=== PATIENT | male | born 1980 | race Caucasian/White ===

== ENCOUNTER 2020-12-07 20:13 | Emergency (ER) | payer MEDICAID, SELFPAY ==
[2020-12-07 20:32] VITALS: BP 117/65; PULSE 78; RESP 18; TEMP 37.2; O2SAT 98; BMI 24.0
[2020-12-07 21:39] LABS: MANUAL DIFF FLAG NO
[2020-12-07 21:41] LABS: Basophils Percent Auto 0.5 % (0-2); Eosinophils Absolute Auto 0.4 X10*3/uL (0.0-0.4); Eosinophils Percent Auto 5.1 % (0-4); Hematocrit 41.9 % (42-52); Hemoglobin 14.5 g/dl (14.0-18.0); Imm Gran Abs Auto 0.02 X10*3/uL (0.00-0.03); Imm Gran Pct Auto 0.3 % (0.0-0.4); Lymphocytes Absolute Auto 2.2 X10*3/uL (1.2-4.9); Lymphocytes Percent Auto 28.9 % (20-40); Mean Corpuscular HGB Conc 34.6 g/dl (31.0-36.0); Mean Corpuscular Hemoglobin 31.6 pg (27.0-33.0); Mean Corpuscular Volume 91.3 fL (80-98); Mean Platelet Volume 9.2 fL (9.4-12.4); Monocytes Absolute Auto 0.7 X10*3/uL (0.1-1.2); Monocytes Percent Auto 9.9 % (2-11); Neutrophils Absolute Auto 4.1 X10*3/uL (2.0-8.3); Neutrophils Percent Auto 55.3 % (45-73); Platelet Count 238 X10*3/uL (160-400); Red Blood Count 4.59 X10*6/uL (4.60-5.80); Red Cell Distribution Width 11.5 % (11.0-16.0); White Blood Count 7.4 X10*3/uL (4.8-10.8)
[2020-12-07 21:42] VITALS: BP 123/71; PULSE 80; RESP 18; TEMP 36.8; O2SAT 97
[2020-12-07 21:58] LABS: Lactic Acid 0.7 mmol/L (0.5-2.0)
[2020-12-07 22:42] LABS: Alanine Aminotransferase 21 U/L (0-40); Albumin Level 4.4 g/dL (3.5-5.0); Alkaline Phosphatase 58 U/L (39-117); Anion Gap 13 (12-20); Aspartate Amino Transferase 29 U/L (5-37); Bilirubin Total 0.9 mg/dL (0.0-1.0); Blood Urea Nitrogen 14 mg/dL (9-16); Calcium 9.5 mg/dL (8.4-10.2); Carbon Dioxide 30 mmol/L (22-29); Chloride 101 mmol/L (96-108); Creatinine Clr Calc Pharmacy 134.7; Estimated Glomerular Filt Rate > 60; Glucose Random 84 mg/dL (60-115); Potassium 3.8 mmol/L (3.3-5.1); Sodium 140 mmol/L (135-145)
--- NOTE | 2020-12-07 23:23 | ED.GENADULT ---
HPI - General Adult General Chief complaint: General Medical Stated complaint: elbow infection? Time Seen by Provider: 12/07/20 22:52 Source: patient Mode of arrival: ambulatory Limitations: no limitations History of Present Illness HPI narrative: Patient came here for right elbow pain after he scratched 2 weeks ago now he noticed increased redness redness and swelling and painful able to move his elbow but painful and extreme movements no fever or chills Related Data Previous Rx's Medication Instructions Recorded cephalexin 500 mg PO QID 10 Days #40 cap 12/07/20 doxycycline hyclate 100 mg PO BID #20 cap 12/07/20 ibuprofen 600 mg PO Q6H PRN #20 tab 12/07/20 Allergies Allergy/AdvReac Type Severity Reaction Status Date / Time No Known Allergies Allergy Unverified 04/28/20 17:23 Review of Systems Review of Systems: Constitutional : No Weight loss, No Fever, No Chills ENT/Mouth : No sore throat, No Rhinorrhea Eyes: No Eye Pain, No Swelling Cardiovascular : No Chest Pain, no palpitations Respiratory : No Cough, No Sputum, no shortness of breath Gastrointestinal : no Nausea, No Vomiting, No Diarrhea, No abdominal Pain, no black stools Genitourinary : No Dysuria, No Urinary Frequency Musculoskeletal : + joint pain, No Myalgias, No Joint Swelling Skin : No Skin Lesions, + rash Neuro : No Weakness, No Numbness, No Dizziness, No Headache Psych : No Anxiety/Panic, No Depression Heme/Lymph: No Bruising, No Lymphadenopathy Endocrine : No Polyuria, No Polydipsia All other systems reviewed and are negative [facility] Past Medical History Medical History Eosinophilic esophagitis Sleep apnea Surgical History H/O hand surgery Hx of right knee surgery S/P LASIK surgery Social History Social History Advance Directives: No Advance Directives Information Provided: No Physical Exam Vital Signs: Vital Signs: Last Vital Signs Temp 98.3 F 12/07/20 21:42 Pulse 80 12/07/20 21:42 Resp 18 12/07/20 21:42 BP 123/71 12/07/20 21:42 Pulse Ox 97 12/07/20 21:42 Body Mass Index 24.0 Const: General: comfortable and no acute distress HENMT: Head: Yes normocephalic Eyes: General: appearance normal, both eyes and all related structures Neck: Neck: Yes full ROM and Yes no lymphadenopathy Resp: Effort & Inspection: normal respiratory effort and able to speak in complete sentences Cardio: Rate: regular rate Rhythm: regular rhythm Heart sounds: S1 normal heart sound present and S2 normal heart sound present GI: Inspection: Yes normal to inspection Palpation (GI): Soft to palpation Extrem: Elbow/forearm/wrist images: 1. Swollen erythematous tender olecranon bursa with surrounding cellulitis Medical Decision Making MDM Narrative Medical decision making narrative: Patient with right olecranon bursitis with surrounding cellulitis needle aspiration revealed clear fluid no pus from the bursa. Labs are stable with normal WBC count and lactic acid, Will discharge patient home on doxycycline and Keflex for cellulitis and ibuprofen for bursitis Lab Data Lab results reviewed: Yes I reviewed the patient's lab results. Result diagrams: 12/07/20 21:31 12/07/20 21:31 Labs: Lab Results 12/07/20 12/07/20 12/07/20 Range/Units 21:31 21:31 21:31 WBC 7.4 (4.8-10.8) X10*3/uL RBC 4.59 L (4.60-5.80) X10*6/uL Hgb 14.5 (14.0-18.0) g/dl Hct 41.9 L (42-52) % MCV 91.3 (80-98) fL MCH 31.6 (27.0-33.0) pg MCHC 34.6 (31.0-36.0) g/dl RDW 11.5 (11.0-16.0) % Plt Count 238 (160-400) X10*3/uL MPV 9.2 L (9.4-12.4) fL Immature Gran % (Auto) 0.3 (0.0-0.4) % Neut % (Auto) 55.3 (45-73) % Lymph % (Auto) 28.9 (20-40) % [place] % (Auto) 9.9 (2-11) % Eos % (Auto) 5.1 H (0-4) % Baso % (Auto) 0.5 (0-2) % Lymph # (Auto) 2.2 (1.2-4.9) X10*3/uL [place] # (Auto) 0.7 (0.1-1.2) X10*3/uL Eos # (Auto) 0.4 (0.0-0.4) X10*3/uL Baso # (Auto) 0.0 (0.0-0.2) X10*3/uL Abs Immat Gran (auto) 0.02 (0.00-0.03) X10*3/uL Absolute Neuts (auto) 4.1 (2.0-8.3) X10*3/uL Absolute Nucleated RBC 0.000 (0.0-0.012) X10*3/uL Nucleated RBC % (auto) 0.0 (0.0-0.2) /100WBC Sodium 140 (135-145) mmol/L Potassium 3.8 (3.3-5.1) mmol/L Chloride 101 (96-108) mmol/L Carbon Dioxide 30 H (22-29) mmol/L Anion Gap 13 (12-20) BUN 14 (9-16) mg/dL Creatinine 0.80 (0.5-1.4) mg/dL Estim Creat Clear Calc 134.7 Estimated GFR > 60 Random Glucose 84 (60-115) mg/dL Lactic Acid 0.7 (0.5-2.0) mmol/L Calcium 9.5 (8.4-10.2) mg/dL Total Bilirubin 0.9 (0.0-1.0) mg/dL AST 29 (5-37) U/L ALT 21 (0-40) U/L Alkaline Phosphatase 58 (39-117) U/L Total Protein 7.0 (6.5-8.0) g/dL Albumin 4.4 (3.5-5.0) g/dL Discharge Plan Discharge Clinical Impression: Cellulitis of right elbow, Bursitis of elbow Patient Disposition: Home, Self-Care Instructions: Cellulitis (ED), Elbow Bursitis (ED) Additional Instructions: Rest to right elbow Antibiotic as advised Report to the ER/PCV of increased swelling /pain/ fever Ibuprofen for pain Prescriptions: New doxycycline hyclate 100 mg capsule 100 mg PO BID Qty: 20 RF: 0 cephalexin 500 mg capsule 500 mg PO QID 10 Days Qty: 40 RF: 0 ibuprofen 600 mg tablet 600 mg PO Q6H PRN (Reason: pain) Qty: 20 RF: 0 Interventions: ED Discharge Assessment Last Done: 12/07/20 23:46 Discharge Date/Time: 12/07/20 23:47
[2020-12-07] MEDS: cephALEXin 500 MG CAPSULE PO (23:46)
== END 2020-12-07 23:47 | disposition home or self-care (01) ==
PROVIDERS: Emergency Provider Internal Medicine; PCP Internal Medicine
DX: L03.113 Cellulitis of right upper limb (principal); M70.31 Other bursitis of elbow, right elbow; Z79.899 Other long term (current) drug therapy
CPT/HCPCS: 36415; 80053; 83605; 85025; 87040; 99283

== ENCOUNTER → 2020-12-21 13:20 | Outpatient (BNVA) | payer SELFPAY | PROVIDERS: PCP Internal Medicine; Visit Provider Physician Assistant Medical | DX: Z02.79 Encounter for issue of other medical certificate (principal) ==

== ENCOUNTER 2022-01-17 07:53 | Outpatient (REF) | payer MEDICAID, SELFPAY | END 2022-01-17 07:54 | disposition home or self-care (01) | LOC: HO.LAB 07:53 | PROVIDERS: PCP Internal Medicine; Visit Provider Internal Medicine | DX: Z13.89 Encounter for screening for other disorder (principal) ==

== ENCOUNTER → 2022-11-19 08:07 | Outpatient (BNVA) | payer SELFPAY | PROVIDERS: PCP Internal Medicine; Visit Provider Physician Assistant Medical | DX: Z02.79 Encounter for issue of other medical certificate (principal) ==

== ENCOUNTER 2024-10-27 15:02 | Outpatient (AMB) | payer OTHER, SELFPAY ==
--- NOTE | 2024-10-27 15:03 | A.OFFPC_ITS ---
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: No Accompanied by: Self / Same As Patient Allergies No Known Allergies Allergy (Unverified 11/03/24 06:12) Medication List - Last Reconciled 11/03/24 by Maximilian Glez MD No Known Home Meds Tobacco use date assessed: 10/27/24 Dental Screening Dental Screen Date: 10/27/24 Did you have a dental visit in the last 12 months?: Yes Did you have a dental problem in the last 6 months where you did not have access to dental care?: No [facility] Medical History (Updated 11/03/24 @ 06:14 by Maximilian Glez MD) Generalized anxiety disorder Obstructive sleep apnea Sleep apnea Eosinophilic esophagitis Surgical History S/P LASIK surgery Hx of right knee surgery H/O hand surgery Family History Father Heart problem Mother Diabetes Obese Cancer Depression Anxiety Social History Housing: House Alcohol intake: current Alcohol intake frequency: a few times a week Patient Tobacco Use Status: Never used Tobacco service: No Current occupational status: employed Cognitive needs: No Hearing needs: No Vision needs: No Questionnaire PHQ-9 Over the last 2 weeks, how often have you been bothered by any of the following problems? 1. Little interest or pleasure in doing things: not at all 2. Feeling down, depressed, or hopeless: not at all 3. Trouble falling or staying asleep, or sleeping too much: not at all 4. Feeling tired or having little energy: not at all 5. Poor appetite or overeating: not at all 6. Feeling bad about yourself - or that you are a failure or have let yourself or your family down: not at all 7. Trouble concentrating on things, such as reading the newspaper or watching television: not at all 8. Moving or speaking so slowly that other people could have noticed. Or the opposite - being so fidgety or restless that you have been moving around a lot more than usual: not at all 9. Thoughts that you would be better off or of hurting yourself in some way: not at all Total score: 0 Source: Developed by Drs. Alfonso Tan, Sunitha Sanford, Mike Vergara and colleagues, with an educational shira from [employer]. Thrive Questionnaire Date Thrive assessed: 10/27/24 I am a: Patient What is your living situation today?: I have a steady place to live Within the past 12 months, did the food you bought not last and you didn't have the money to get more?: Never true Within the past 12 months, did you worry whether your food would run out before you got money to buy more?: Never true Do you have trouble paying for medicines?: No Do you have trouble getting transportation to medical appointments?: No Do you have trouble paying your heating and electricity bill?: No Do you have trouble taking care of your child, family member or friend?: No Do you have trouble with day-to-day activities such as bathing, preparing meals, shopping, managing finances, etc.?: No Are you currently unemployed and looking for a job?: No Are you interested in more education?: No Please select the resources that you would like help with: None THRIVE Score: 0 AUDIT C Alcohol Use Questionnaire (AUDIT-C) 1. How often do you have a drink containing alcohol?: 2-3 times a week 2. How many drinks containing alcohol do you have on a typical day when you are drinking?: 1 or 2 3. How often do you have six or more drinks on one occasion?: Never Total Score: 3 SUMMER-7 AMB Questionnaire SUMMER-7 Date SUMMER - 7 assessed: 10/27/24 Feeling nervous, anxious, or on edge: 2 = More than half the days Not being able to stop or control worryin = Several days Worrying too much about different things: 2 = More than half the days Trouble relaxin = Nearly every day Being so restless that it is hard to sit still: 0 = Not at all Becoming easily annoyed or irritable: 3 = Nearly every day Feeling afraid as if something awful might happen: 0 = Not at all Total SUMMER-7 score (0-4 normal; 5-9 mild; 10-14 moderate; 15-21 severe): 11 Source: Developed by Drs. Alfonso Tan, Sunitha Sanford, Mike Vergara and colleagues, with an educational shira from [employer]. Physical exam (Primary Care) Vital Signs: Last Vital Signs Temp 97.6 F 10/27/24 15:05 Pulse 86 10/27/24 15:05 Resp 14 10/27/24 15:05 BP 122/78 10/27/24 15:05 Pulse Ox 98 10/27/24 15:05 Oxygen Delivery Method Room Air 10/27/24 15:05 BMI result Body Mass Index 25.2 Tobacco/Smoking Status: Tobacco use Status Tobacco use date assessed 10/27/24 10/27/24 15:14 Patient Tobacco Use Status Never used Tobacco 10/27/24 15:14 PHQ-9: PHQ-9 Score PHQ-9: Total score 0 10/27/24 15:14 Thrive Assessment: Date of Thrive Assessment Date Thrive assessed 10/27/24 10/27/24 15:14 Coding Level of Care Code New Pt Level 3 (78184) New Pt Prev Care 40-64y(81015) Diagnoses Obstructive sleep apnea G47.33 Generalized anxiety disorder F41.1 Assessment & Plan Assessment & Plan (1) Obstructive sleep apnea: Code(s): G47.33 - Obstructive sleep apnea (adult) (pediatric) Category: Medical Plan: Sleep medicine referral is made (2) Generalized anxiety disorder: Code(s): F41.1 - Generalized anxiety disorder Category: Medical Plan: Acknowledges his condition but declines medications or therapy. Plan History of Present Illness The patient is a 44-year-old male presenting for a physical examination and evaluation of several chronic health issues. He has a diagnosis of sleep apnea from 2013, managed with a CPAP machine, yet reports ongoing daytime somnolence and challenges with sustained alertness during driving. The patient has not had a recent repeat sleep study. There is concern regarding erectile dysfunction starting in February, manifesting as intermittent troubles with maintaining an erection, with the patient suspecting anxiety and physiological factors. Historically, he maintained a high libido and stable sexual life, experiencing increased anxiety and stress correlated with these issues recently. The patient acknowledges a history of anxiety and family stress during childhood, with aggravated stress feelings becoming more prevalent in the past six months. He expresses concern over financial security despite a stable income and good management of current expenses. Further, there are two notable lesions on the scalp, persistent and prone to re- irritation. These have been present for many years and are of cosmetic and possibly health concern, given past sun exposure and moles. 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 - Family status: for 18 years, father of two boys aged 9 and almost 7. - Substance use: Occasional alcohol; denies tobacco or illicit drug use. - Exercise: Engages in running, participates in half-marathons with his . - Functional status: Describes himself as highly active and energetic; experiences fatigue linked to sleep apnea. - Stress: Reports high stress levels related to financial concerns. - Housing: Stable; no current financial distress. - Level of activity: High; regularly engages in physical activities despite reported fatigue. Review of Systems - Constitutional: Reports daytime sleepiness, particularly when driving. - Neurological: Denies insomnia; describes the ability to fall asleep easily but feels unrested upon waking. - Psychiatric: Reports irritability and anxiety; stress about financial matters. - Dermatological: Reports non-healing lesions on scalp. - Genitourinary: Reports episodes of erectile dysfunction, historically high libido. Physical Exam General: Cooperative and healthy appearing Nutritional Appearance: Well nourished Orientation/consciousness: Patient oriented x3 Limitations: No limitations Head: Normal to inspection General: Appearance normal, both eyes and all related structures Neck: Normal visual inspection Chest: Normal palpation of entire chest wall Respiratory: Normal respiratory effort Neurology: Patient oriented x3 Results Plan A referral for a repeat sleep study will be arranged to reevaluate the severity of obstructive sleep apnea and optimize CPAP therapy. Blood work will assess potential hepatic steatosis and familial hypertriglyceridemia concerns. Dermatology evaluation will be pursued for chronic scalp lesions. Consideration of Wellbutrin for anxiety management was discussed, emphasizing informed consent on its use, potential side effects, and a necessary three-month commitment to the medication. Patient was informed and verbally consented to the use of an ambient scribe for clinic note documentation during this visit. Discussion Notes I discussed with the patient the importance of reassessing sleep apnea through a new sleep study, as current symptoms suggest possible suboptimal CPAP settings or worsening of the condition. We reviewed his concerns about erectile dysfunction, emphasizing the potential role of anxiety and stress, and educated him on managing sexual health anxiety. The conversation included a discussion about the pharmacotherapy option of Wellbutrin for anxiety, detailing the potential effects on mood, sleep, and libido and the importance of maintaining a stable regimen over three months. Lastly, a plan for dermatologic evaluation was decided upon due to the persistent lesions on the scalp, as further assessment is deemed necessary. Patient Instructions - Follow up with the sleep specialist for a repeat study on your sleep apnea. - Obtain fasting blood work as discussed, focusing on cholesterol and liver function. - See a geothermal powerplant mechanic for evaluation of scalp lesions. - Consider the information discussed about Wellbutrin; if choosing to initiate, keep a record of your symptoms and response to the medication over the three- month trial period. - Maintain a log of good and bad days as a reference for future appointments. - Continue using CPAP consistently and report any changes in symptoms or machine effectiveness. - Seek guidance from your support system and consider talking to a therapist about stress management. Orders: Orders Basic Metabolic Panel 10/28/24 G47.33 - Obstructive sleep apnea (adult) (pediatric) Liver Panel 10/28/24 G47.33 - Obstructive sleep apnea (adult) (pediatric) Thyroid Stimulating Hormone 10/28/24 G47.33 - Obstructive sleep apnea (adult) (pediatric) Complete Blood Count no Diff 10/28/24 G47.33 - Obstructive sleep apnea (adult) (pediatric) Lipid Panel 10/28/24 G47.33 - Obstructive sleep apnea (adult) (pediatric) UA and rflx microscopic 10/28/24 G47.33 - Obstructive sleep apnea (adult) (pediatric) Referrals Sleep Medicine Referral G47.33 - Obstructive sleep apnea (adult) (pediatric) Medications: Discontinued cephalexin Discontinued Reason: Patient Completed Course 500 mg PO QID 10 days 40 caps 0RF ibuprofen Discontinued Reason: Patient no longer taking 600 mg PO Q6H PRN 20 tabs 0RF pain doxycycline hyclate Discontinued Reason: Patient Completed Course 100 mg PO BID 20 caps 0RF
[2024-10-27 15:05] VITALS: BP 122/78; PULSE 86; RESP 14; TEMP 36.4; O2SAT 98; BMI 25.2
== END 2024-10-27 15:52 | disposition home or self-care (01) ==
LOC: HO.HMCSH 15:02
PROVIDERS: PCP Internal Medicine; Visit Provider Internal Medicine
DX: G47.33 Obstructive sleep apnea (adult) (pediatric) (principal); F41.1 Generalized anxiety disorder; Z00.00 Encounter for general adult medical examination without abnormal findings

== ENCOUNTER → 2024-10-27 15:02 | Outpatient (BNVA) | payer OTHER, SELFPAY | PROVIDERS: PCP Internal Medicine; Visit Provider Internal Medicine | DX: Z00.00 Encounter for general adult medical examination without abnormal findings (principal); G47.33 Obstructive sleep apnea (adult) (pediatric); F41.1 Generalized anxiety disorder | CPT/HCPCS: 99202; 99386 ==

== ENCOUNTER 2024-10-28 08:07 | Outpatient (REF) | payer OTHER, SELFPAY ==
[2024-10-28 09:00] LABS: Hematocrit 45.7 % (42.0-52.0); Hemoglobin 16.6 g/dl (14.0-18.0); Mean Corpuscular HGB Conc 36.3 g/dl (31.0-36.0); Mean Corpuscular Hemoglobin 31.8 pg (27.0-33.0); Mean Corpuscular Volume 87.5 fL (80.0-98.0); Mean Platelet Volume 9.2 fL (9.4-12.4); Platelet Count 239 X10*3/uL (160-400); Red Blood Count 5.22 X10*6/uL (4.60-5.80); Red Cell Distribution Width 11.7 % (11.0-16.0); White Blood Count 5.1 X10*3/uL (4.8-10.8)
[2024-10-28 09:05] LABS: Appearance Urine Clear; Color Urine Yellow; Glucose Urine UA Negative (Negative); Leukocyte Esterase Urine Negative (Negative); Nitrite Urine Negative (Negative); PH 5.5 (5.0-9.0); Specific Gravity - Urine 1.025 (1.005-1.025); Urine Blood Negative (Negative); Urine Ketones Negative (Negative); Urine Protein Negative (Neg-Trace)
[2024-10-28 09:33] LABS: Alanine Aminotransferase 37 U/L (0-40); Albumin Level 4.2 g/dL (3.5-5.0); Alkaline Phosphatase 51 U/L (39-117); Anion Gap 11 (12-20); Aspartate Amino Transferase 35 U/L (5-37); Bilirubin Direct 0.3 mg/dL (0.0-0.5); Bilirubin Total 1.3 mg/dL (0.0-1.0); Blood Urea Nitrogen 17 mg/dL (9-16); Carbon Dioxide 27 mmol/L (22-29); Chloride 105 mmol/L (96-108); Cholesterol 282 mg/dL (<200); Estimated Glomerular Filt Rate > 60; Glucose Random 88 mg/dL (60-115); HDL Cholesterol 67 mg/dL (>40); LDL Cholesterol Calculated 170 mg/dL (<100); Sodium 139 mmol/L (135-145); Total Protein 7.2 g/dL (6.5-8.0); Triglycerides 227 mg/dL (<150)
[2024-10-28 09:55] LABS: Thyroid Stimulating Hormone 0.67 uIU/mL (0.32-4.0)
== END 2024-10-28 08:08 | disposition home or self-care (01) ==
LOC: HO.LAB 08:07
PROVIDERS: PCP Internal Medicine; Visit Provider Internal Medicine
DX: G47.33 Obstructive sleep apnea (adult) (pediatric) (principal)
CPT/HCPCS: 36415; 80048; 80061; 80076; 81003; 84443; 85027

== ENCOUNTER → 2024-11-12 15:09 | Outpatient (BNVA) | payer SELFPAY | PROVIDERS: PCP Internal Medicine; Visit Provider Physician Assistant | DX: Z02.79 Encounter for issue of other medical certificate (principal) ==

== ENCOUNTER 2024-12-22 09:26 | Outpatient (AMB) | payer OTHER, SELFPAY ==
[2024-12-22 09:34] VITALS: BP 119/71; PULSE 78; TEMP 36.6; O2SAT 98; BMI 24.0
--- NOTE | 2024-12-22 09:34 | A.OFFPC_ITS ---
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 Required: No Accompanied by: Self / Same As Patient Allergies No Known Allergies Allergy (Unverified 12/22/24 09:34) Tobacco use date assessed: 12/22/24 Dental Screening Dental Screen Date: 10/27/24 [facility] Medical History (Updated 12/22/24 @ 10:13 by Maximilian Glez MD) Hyperlipidemia Scalp lesion Generalized anxiety disorder Obstructive sleep apnea Sleep apnea Eosinophilic esophagitis Surgical History S/P LASIK surgery Hx of right knee surgery H/O hand surgery Family History Father Heart problem Mother Diabetes Obese Cancer Depression Anxiety Social History Housing: House Alcohol intake: current Alcohol intake frequency: a few times a week Patient Tobacco Use Status: Never used Tobacco service: No Current occupational status: employed Cognitive needs: No Hearing needs: No Vision needs: No Questionnaire PHQ-9 Over the last 2 weeks, how often have you been bothered by any of the following problems? 1. Little interest or pleasure in doing things: not at all 2. Feeling down, depressed, or hopeless: not at all 3. Trouble falling or staying asleep, or sleeping too much: not at all 4. Feeling tired or having little energy: not at all 5. Poor appetite or overeating: not at all 6. Feeling bad about yourself - or that you are a failure or have let yourself or your family down: not at all 7. Trouble concentrating on things, such as reading the newspaper or watching television: not at all 8. Moving or speaking so slowly that other people could have noticed. Or the opposite - being so fidgety or restless that you have been moving around a lot more than usual: not at all 9. Thoughts that you would be better off or of hurting yourself in some way: not at all Total score: 0 Source: Developed by Drs. Alfonso Tan, Mike Ferrer and colleagues, with an educational shira from [employer]. Thrive Questionnaire Date Thrive assessed: 10/27/24 I am a: Patient What is your living situation today?: I have a steady place to live Within the past 12 months, did the food you bought not last and you didn't have the money to get more?: Never true Within the past 12 months, did you worry whether your food would run out before you got money to buy more?: Never true Do you have trouble paying for medicines?: No Do you have trouble getting transportation to medical appointments?: No Do you have trouble paying your heating and electricity bill?: No Do you have trouble taking care of your child, family member or friend?: No Do you have trouble with day-to-day activities such as bathing, preparing meals, shopping, managing finances, etc.?: No Are you currently unemployed and looking for a job?: No Are you interested in more education?: No Please select the resources that you would like help with: None THRIVE Score: 0 AUDIT C Alcohol Use Questionnaire (AUDIT-C) 1. How often do you have a drink containing alcohol?: 2-3 times a week 2. How many drinks containing alcohol do you have on a typical day when you are drinking?: 1 or 2 3. How often do you have six or more drinks on one occasion?: Never Total Score: 3 SUMMER-7 AMB Questionnaire SUMMER-7 Date SUMMER - 7 assessed: 10/27/24 Feeling nervous, anxious, or on edge: 2 = More than half the days Not being able to stop or control worryin = Several days Worrying too much about different things: 2 = More than half the days Trouble relaxin = Nearly every day Being so restless that it is hard to sit still: 0 = Not at all Becoming easily annoyed or irritable: 3 = Nearly every day Feeling afraid as if something awful might happen: 0 = Not at all Total SUMMER-7 score (0-4 normal; 5-9 mild; 10-14 moderate; 15-21 severe): 11 Source: Developed by Sunitha Christian Kurt Kroenke and colleagues, with an educational shira from [employer]. Physical exam (Primary Care) Vital Signs: Last Vital Signs Temp 97.8 F 12/22/24 09:34 Pulse 78 12/22/24 09:34 BP 119/71 12/22/24 09:34 Pulse Ox 98 12/22/24 09:34 Oxygen Delivery Method Room Air 12/22/24 09:34 BMI result Body Mass Index 24.0 Tobacco/Smoking Status: Tobacco use Status Tobacco use date assessed 12/22/24 12/22/24 09:43 Patient Tobacco Use Status Never used Tobacco 12/22/24 09:43 PHQ-9: PHQ-9 Score PHQ-9: Total score 0 12/22/24 10:15 Thrive Assessment: Date of Thrive Assessment Date Thrive assessed 10/27/24 12/22/24 09:43 Coding Level of Care Code Est Pt Level 4 (82426) Complex EM visit Add On G2211 Diagnoses Generalized anxiety disorder F41.1 Obstructive sleep apnea G47.33 Hyperlipidemia E78.5 Assessment & Plan Assessment & Plan (1) Generalized anxiety disorder: Code(s): F41.1 - Generalized anxiety disorder Category: Medical Plan: Encouraged patient to start Wellbutrin. (2) Obstructive sleep apnea: Code(s): G47.33 - Obstructive sleep apnea (adult) (pediatric) Category: Medical Plan: Patient has an upcoming appointment in January for a sleep study. (3) Hyperlipidemia: Code(s): E78.5 - Hyperlipidemia, unspecified Category: Medical Plan: Blood work reviewed with patient. Elevated LDL discussed. Patient not willing to start medications at the moment. Wishes to recheck blood work in 6 months. Plan History of Present Illness The patient is a 44-year-old male presenting with concerns related to the anticipated pharmaceutical initiation of Wellbutrin (bupropion) for managing his major depressive disorder, following challenges related to its procurement and apprehensions about side effects. He has proactively chosen a new pharmacy to facilitate receipt of the medication, seeking clarification on its early effects. In addition, the patient expresses a pre-existing diagnosis of elevated cholesterol, with baseline laboratory results indicating high cholesterol and triglyceride levels, opting to manage these through lifestyle changes before pursuing medication. He confirms adjustments to his alcohol consumption and diet, aiming to evaluate their impact on cholesterol levels in half a year's time. Social History - Family Status: with children (referred to having a and boys). - Alcohol Intake: Limited to weekends only (Saturday, Saturday, Saturday; occasionally none on Saturday). - Diet: Implemented dietary modifications including less red meat and reduced intake of snacks, specifically chips. - Travel: Upcoming six-week road trip planned with family. - Exercise: Engages in running. Review of Systems - Psychiatric: Reports apprehension regarding Wellbutrin (bupropion) initiation. - Integumentary: Reports a cyst and a long-standing lipoma, which are not currently symptomatic. - Cardiovascular: Denies immediate concerns related to high cholesterol other than the known elevated levels. Physical Exam General: Cooperative and healthy appearing Nutritional Appearance: Well nourished Orientation/consciousness: Patient oriented x3 Limitations: No limitations Head: Normal to inspection General: Appearance normal, both eyes and all related structures Neck: Normal visual inspection Chest: Normal palpation of entire chest wall Respiratory: Normal respiratory effort Neurology: Patient oriented x3 Results - Labs: - Total cholesterol: 280 mg/dL - Triglycerides: 170 mg/dL Plan 1. Major Depressive Disorder - Start Wellbutrin (bupropion) with instructions on dosage and expectations during initial weeks. 2. Elevated Cholesterol - Continue current lifestyle changes; schedule follow-up lab assessment in six months. 3. Sebaceous Cyst - Monitor; no immediate intervention necessary. 4. Lipoma - Monitoring suggested due to lack of concerning changes. Discussion Notes During this visit, I discussed with the patient his concerns regarding the initiation of Wellbutrin (bupropion) for major depressive disorder, emphasizing potential side effects such as initial discomfort that typically subside within a few days. I advised him to adhere to the medication schedule, maintaining it for at least three months for an effective evaluation of benefits. For his elevated cholesterol, we agreed that immediate blood work is unnecessary and focusing on lifestyle adjustments could yield notable changes, aiming to reassess in six months. Additionally, we explored concerns regarding the sebaceous cyst and lipoma, concluding that these did not present immediate risks and could be managed conservatively unless changes occur. Patient Instructions - Start taking Wellbutrin (bupropion) as prescribed and continue for three months to assess its efficacy. - Maintain modified diet and controlled alcohol consumption. - No need for immediate blood tests; follow up in six months to check cholesterol levels. - Avoid manipulation of the cyst and monitor for any changes. - Monitor the lipoma; follow up if changes occur. - Return to the clinic if experiencing any unexpected issues or significant changes in health. Medications: Refilled bupropion HCl XL (Wellbutrin XL) 150 mg PO QAM 30 tabs 1RF
== END 2024-12-22 10:16 | disposition home or self-care (01) ==
LOC: HO.HMCSH 09:26
PROVIDERS: PCP Internal Medicine; Visit Provider Internal Medicine
DX: F41.1 Generalized anxiety disorder (principal); G47.33 Obstructive sleep apnea (adult) (pediatric); E78.5 Hyperlipidemia, unspecified

== ENCOUNTER → 2024-12-22 09:26 | Outpatient (BNVA) | payer OTHER, SELFPAY | PROVIDERS: PCP Internal Medicine; Visit Provider Internal Medicine | DX: F41.1 Generalized anxiety disorder (principal); G47.33 Obstructive sleep apnea (adult) (pediatric); E78.00 Pure hypercholesterolemia, unspecified; L72.3 Sebaceous cyst; D17.9 Benign lipomatous neoplasm, unspecified | CPT/HCPCS: 99212 ==

== ENCOUNTER 2025-06-22 09:27 | Outpatient (AMB) | payer OTHER, SELFPAY ==
--- NOTE | 2025-06-22 09:33 | A.OFFPC_ITS ---
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: No Accompanied by: Self / Same As Patient Allergies No Known Allergies Allergy (Unverified 06/22/25 09:34) Tobacco use date assessed: 12/22/24 Dental Screening Dental Screen Date: 10/27/24 [facility] Medical History Hyperlipidemia Scalp lesion Generalized anxiety disorder Obstructive sleep apnea Sleep apnea Eosinophilic esophagitis Surgical History S/P LASIK surgery Hx of right knee surgery H/O hand surgery Family History Father Heart problem Mother Diabetes Obese Cancer Depression Anxiety Social History Housing: House Alcohol intake: current Alcohol intake frequency: a few times a week Patient Tobacco Use Status: Never used Tobacco service: No Current occupational status: employed Cognitive needs: No Hearing needs: No Vision needs: No Questionnaire PHQ-9 Over the last 2 weeks, how often have you been bothered by any of the following problems? 1. Little interest or pleasure in doing things: not at all 2. Feeling down, depressed, or hopeless: not at all 3. Trouble falling or staying asleep, or sleeping too much: not at all 4. Feeling tired or having little energy: not at all 5. Poor appetite or overeating: not at all 6. Feeling bad about yourself - or that you are a failure or have let yourself or your family down: not at all 7. Trouble concentrating on things, such as reading the newspaper or watching television: not at all 8. Moving or speaking so slowly that other people could have noticed. Or the opposite - being so fidgety or restless that you have been moving around a lot more than usual: not at all 9. Thoughts that you would be better off or of hurting yourself in some way: not at all Total score: 0 Source: Developed by Drs. Alfonso Tan, Sunitha Sanford, Mike Vergara and colleagues, with an educational shira from [employer]. Thrive Questionnaire Date Thrive assessed: 10/27/24 I am a: Patient What is your living situation today?: I have a steady place to live Within the past 12 months, did the food you bought not last and you didn't have the money to get more?: Never true Within the past 12 months, did you worry whether your food would run out before you got money to buy more?: Never true Do you have trouble paying for medicines?: No Do you have trouble getting transportation to medical appointments?: No Do you have trouble paying your heating and electricity bill?: No Do you have trouble taking care of your child, family member or friend?: No Do you have trouble with day-to-day activities such as bathing, preparing meals, shopping, managing finances, etc.?: No Are you currently unemployed and looking for a job?: No Are you interested in more education?: No Please select the resources that you would like help with: None THRIVE Score: 0 AUDIT C Alcohol Use Questionnaire (AUDIT-C) 1. How often do you have a drink containing alcohol?: 2-3 times a week 2. How many drinks containing alcohol do you have on a typical day when you are drinking?: 1 or 2 3. How often do you have six or more drinks on one occasion?: Never Total Score: 3 SUMMER-7 AMB Questionnaire SUMMER-7 Date SUMMER - 7 assessed: 10/27/24 Feeling nervous, anxious, or on edge: 2 = More than half the days Not being able to stop or control worryin = Several days Worrying too much about different things: 2 = More than half the days Trouble relaxin = Nearly every day Being so restless that it is hard to sit still: 0 = Not at all Becoming easily annoyed or irritable: 3 = Nearly every day Feeling afraid as if something awful might happen: 0 = Not at all Total SUMMER-7 score (0-4 normal; 5-9 mild; 10-14 moderate; 15-21 severe): 11 Source: Developed by Drs. Alfonso LSunitha Blake Kurt Kroenke and colleagues, with an educational shira from [employer]. Physical exam (Primary Care) Vital Signs: Last Vital Signs Temp 97.6 F 06/22/25 09:34 Pulse 88 06/22/25 09:34 BP 115/63 06/22/25 09:34 Pulse Ox 97 06/22/25 09:34 Oxygen Delivery Method Room Air 06/22/25 09:34 BMI result Body Mass Index 24.1 Tobacco/Smoking Status: Tobacco use Status Tobacco use date assessed 12/22/24 06/22/25 09:38 Patient Tobacco Use Status Never used Tobacco 06/22/25 09:38 PHQ-9: PHQ-9 Score PHQ-9: Total score 0 06/22/25 09:38 Thrive Assessment: Date of Thrive Assessment Date Thrive assessed 10/27/24 06/22/25 09:38 Office Procedures Flu Questionnaire Does the patient have a severe egg allergy?: No Does the patient have severe life threatening allergies?: No Does the patient have a fever or illness today?: No Has the patient ever had Guillain-Austin Syndrome?: No Has the patient ever had any past reaction to a flu shot?: No Immunizations Fluarix [id number] (PF) 45 mcg (15 mcg x 3)/0.5 mL IM syringe Performing Provider: Maximilian Glez MD [facility] Documented (not given) by: MARCIE Hi on 06/22/25 09:39 Reason Not Given: Patient Refused Coding Level of Care Code Est Pt Level 4 (76470) Complex EM visit Add On G2211 Diagnoses Hyperlipidemia E78.5 Assessment & Plan Assessment & Plan (1) Hyperlipidemia: Code(s): E78.5 - Hyperlipidemia, unspecified Category: Medical Plan: Blood work has been ordered Plan History of Present Illness - The patient is a 45-year-old male presenting for management of anxiety, erectile dysfunction, and other health maintenance concerns. - The patient's dose of Wellbutrin was increased to 150 mg twice daily about a month ago for anxiety and irritability. - He reports his mood goes in waves, with intermittent spells of irritability and anxiety, though the last couple of weeks have been great. - He uses his level of irritability towards his two young sons as a personal barometer for his mental state. - For approximately a year, the patient has experienced occasional erectile dysfunction, described as mediocre erections that are sufficient for penetration but not sustained, which causes him significant stress. - He notes he experiences normal nocturnal erections and that at other times during intimacy, he has no issues, indicating a likely psychogenic component. - The patient has a referral for a sleep study due to concerns for sleep apnea, which he has had to reschedule and intends to complete. - He is concerned about spots on his head and was supposed to receive a call from a dermatology office for a referral made in November, but he does not recall being contacted. - Past labs have shown high cholesterol, and while his diet improved for a couple of months, it has recently become less consistent. - He has a significant family history of cardiac issues; his father had four stents placed in 2003 with a history of hypertriglyceridemia, and his older brother also has markedly elevated triglycerides. - The patient is physically active, having recently completed a 50-mile mountain bike race and a half marathon. Social History - The patient is with two sons, ages 9 and 7. - He reports consuming alcohol approximately four nights a week but denies alcohol abuse. - He is physically very active, engaging in activities such as running, biking, hiking, and participating in endurance races like a 50-mile mountain bike race and a half marathon. - Regarding nutrition, the patient reports a generally good diet, rarely eating fast food or dessert, but notes it has been less consistent lately and includes items like potato chips. - The patient previously saw a therapist but discontinued, as he felt it was not a good fit, and is interested in pursuing therapy again. Review of Systems - Psychiatric: Reports intermittent anxiety and irritability. - Genitourinary: Reports occasional erectile dysfunction but also reports normal nocturnal erections. - Dermatologic: Reports unspecified spots on his head. Physical Exam General: Cooperative and healthy appearing Nutritional Appearance: Well nourished Orientation/consciousness: Patient oriented x3 Limitations: No limitations Head: Normal to inspection General: Appearance normal, both eyes and all related structures Neck: Normal visual inspection Chest: Normal palpation of entire chest wall Respiratory: Normal respiratory effort Neurology: Patient oriented x3 Results - Labs: Patient's cholesterol was noted to be high on previous testing; specific values were not discussed. Plan - A referral will be made to a psychiatrist for a second opinion on medication management for anxiety. - A referral will be made to a therapist for psychotherapy. - The patient will call [facility] at [phone] to reschedule his sleep study for suspected sleep apnea. - [phone] to follow up on the November referral for skin lesions on his head and will message via the portal if a new referral is needed. - The patient will undergo 12-hour fasting blood work to re-evaluate his cholesterol levels. - An EKG will be performed as a baseline cardiac test. - The patient's request for a cardiac scan for plaque buildup was discussed and deferred, with the rationale that medical management with statins is the primary intervention, and a scan is not indicated at this time and may not be covered by insurance. - The patient declined the influenza vaccination. Discussion Notes I discussed with the patient his fluctuating anxiety and irritability despite the recent dose increase of Wellbutrin. I explained that his erectile dysfunction is likely psychogenic, stemming from stress and performance anxiety, given that he reports normal nocturnal erections and normal function at other times; mechanistically, everything appears fine. We agreed on a plan to obtain a second opinion on his psychiatric medications via a psychiatry referral and to also refer him to a therapist for counseling. I addressed his concern about a cardiac screening, explaining that given his current health status, a cardiac scan for plaque is not indicated and that the primary intervention for high cholesterol and family history is medication, such as a statin. I agreed to order an EKG along with repeat fasting bloodwork to check his cholesterol as a baseline assessment. I provided him with the contact information to follow up on his referrals for a sleep study and dermatology appointment. The patient declined the influenza vaccine. Patient Instructions - Expect to be contacted by both a psychiatrist's office for a medication review and a therapist's office for counseling. - Please call [facility] at [phone] to schedule your sleep study. - [facility] at [phone] to schedule an appointment to have the spots on your head evaluated. If they cannot find your referral, send a message through the patient portal. - Please go to the lab for an EKG and blood work. You will need to fast (no food or drink except water) for 12 hours before the blood draw. - Continue taking your Wellbutrin as prescribed until you have your appointment with the psychiatrist. Orders: Orders ECG 12 lead EKG Today E78.5 - Hyperlipidemia, unspecified Influenza [id number] Immunization Today Z23 - Encounter for immunization Lipid Panel Today E78.5 - Hyperlipidemia, unspecified Referrals Psychiatry Outpatient Consultation Service F32.4 - Major depressive disorder, single episode, in partial remission
[2025-06-22 09:34] VITALS: BP 115/63; PULSE 88; TEMP 36.4; O2SAT 97; BMI 24.1
== END 2025-06-22 09:59 | disposition home or self-care (01) ==
PROVIDERS: PCP Internal Medicine; Visit Provider Internal Medicine
DX: Z23 Encounter for immunization (principal); E78.5 Hyperlipidemia, unspecified

== ENCOUNTER → 2025-06-22 09:27 | Outpatient (BNVA) | payer OTHER, SELFPAY | PROVIDERS: PCP Internal Medicine; Visit Provider Internal Medicine | DX: Z28.21 Immunization not carried out because of patient refusal (principal); E78.5 Hyperlipidemia, unspecified | CPT/HCPCS: 90471; 99212 ==